=== PATIENT | male | born 1995 | race Caucasian/White ===

== ENCOUNTER 2022-11-26 15:28 | Emergency (ER) | payer BC, OTHER ==
[2022-11-26] MEDS ORDERED: Lidocaine 1% 5 ML VIAL INJECT STA ×2 (16:51→18:03)
[2022-11-26] MEDS ORDERED: Diphtheria,Pertussis(Acell),Tetanus Vaccine 0.5 ML Syringe IM ONE (16:52)
[2022-11-26] MEDS ORDERED: Bacitracin Oint 1 GM U/D Packet TOP STA (19:07)
== END 2022-11-26 19:39 | disposition home or self-care (01) ==
LOC: MW.ED 15:28
DX: S62.651A Nondisplaced fracture of middle phalanx of left index finger, initial encounter for closed fracture (principal); S61.211A Laceration without foreign body of left index finger without damage to nail, initial encounter; Z72.0 Tobacco use; Z23 Encounter for immunization; W23.0XXA Caught, crushed, jammed, or pinched between moving objects, initial encounter
CPT/HCPCS: 12002; 73140-26-F1; 73140-F1; 90471; 90715; 99283-25; J3490

== ENCOUNTER 2025-04-12 21:03 | Emergency (ER) | payer SELFPAY ==
[2025-04-12] MEDS ORDERED: Sodium Chloride 0.9% 10 ML Syringe FLUSH PRN (21:18)
[2025-04-12] MEDS ORDERED: Sodium Chloride 0.9% 2.5 ML Syringe FLUSH PRN (21:18)
[2025-04-12 21:35] LABS: MEAN PLATELET VOLUME 8.8 fL (9.4-12.4); NRBC ABSOLUTE 0.00 K/uL (0.00-0.02); NRBC PERCENT 0.0 /100WBC (0.0-0.2); PLATELET COUNT,PLT 300 K/uL (150-400); RED BLOOD CELL COUNT 4.86 M/uL (4.52-5.90); WHITE BLOOD CELL COUNT,WBC 20.40 K/uL (3.9-11.3)
[2025-04-12] MEDS: Ketorolac 30 MG/ML SDV IVPUSH ONE (21:45)
[2025-04-12 22:01] LABS: A/G RATIO 1.0 (0.9-1.6); ALANINE AMINOTRANSFERASE,ALT 29.0 IU/L (14-63); ASPARTATE AMNIOTRANSFERASE,AST 17.0 IU/L (15-37); BILIRUBIN TOTAL 0.3 mg/dL (0.2-1.0); BLOOD UREA NITROGEN,BUN 8.0 mg/dL (7.0-18.0); CARBON DIOXIDE,CO2 27.6 mmol/L (21.0-32.0); CHLORIDE,CL 101.0 mmol/L (98-107); CREATININE 0.9 mg/dL (0.8-1.3); EST CRCL DRUG DOSING (CG) 146.01 mL/min; GLUCOSE RANDOM 101.0 mg/dL (74-106); POTASSIUM,K 3.9 mmol/L (3.5-5.1); PROTEIN TOTAL,TP 8.3 g/dL (6.4-8.2); SODIUM,NA 138.0 mmol/L (136-148)
[2025-04-12 22:06] LABS: ESTIMATED GFR 117.0 mL/min (>60)
[2025-04-12] MEDS: cefTRIAXone 1 GM in Water For Injection, Sterile 10 ML IVPUSH ONE (22:13)
[2025-04-12 22:20] LABS: LACTIC ACID 1.6 mmol/L (0.4-2.0); SEG NEUTROPHILS ABSOLUTE MAN 14.48 K/uL (1.80-7.70); SEG NEUTROPHILS PERCENT MAN 71 % (41-71)
[2025-04-12 22:21] LABS: EOSINOPHILS ABSOLUTE MAN 0.41 K/uL (0.00-0.45); EOSINOPHILS PERCENT MAN 2 % (0-6); LYMPHOCYTES ABSOLUTE MAN 3.06 K/uL (1.00-4.80); LYMPHOCYTES PERCENT MAN 15 % (24-44); MONOCYTES ABSOLUTE MAN 2.45 K/uL (0.00-0.80); MONOCYTES PERCENT MAN 12 % (0-8)
[2025-04-12 23:08] LABS: APPEARANCE,URINE CLEAR; GLUCOSE,URINE NEGATIVE (NEGATIVE); OCCULT BLOOD,URINE NEGATIVE (NEGATIVE)
[2025-04-12 23:17] LABS: AMPHETAMINES SCREEN, URINE NEGATIVE (CUTOFF=500); BUPRENORPHINE SCREEN,URINE NEGATIVE (CUTOFF=10); METHADONE SCREEN, URINE NEGATIVE (CUTOFF=200); METHAMPHETAMINES SCREEN, URINE NEGATIVE (CUTOFF=500); OXYCODONE SCREEN,URINE NEGATIVE (CUT0FF=100); PCP SCREEN,URINE NEGATIVE (CUTOFF=25); THC SCREEN,URINE 20 NG/ML NEGATIVE (CUTOFF=50)
[2025-04-12] MEDS: Dexamethasone Sod Phos Preservative Free 10 MG/ML Vial IVPUSH ONE (23:45)
== END 2025-04-13 00:11 | disposition home or self-care (01) ==
LOC: MW.ED 21:03
DX: J02.0 Streptococcal pharyngitis (principal); Z87.891 Personal history of nicotine dependence; Z59.82 Transportation insecurity; Z75.3 Unavailability and inaccessibility of health-care facilities
CPT/HCPCS: 36415; 71045; 80053; 80305; 81003; 83605; 83690; 83735; 85025; 87040; 87428; 87651; 96361; 96374; 96375; 99283; A9270; J0696; J1100; J1885; J7030